=== PATIENT | male | born 1980 | race Caucasian/White ===

== ENCOUNTER 2016-09-19 17:29 | Emergency (ER) | payer OTHER ==
[2016-09-19 17:38] VITALS: BP 114/78; PULSE 85; RESP 20; TEMP 98; O2SAT 97
--- NOTE | 2016-09-19 17:46 | UCPHY ---
H & P Time Seen by Provider: 09/19/16 17:37 Patient Type: New HPI/ROS: CHIEF COMPLAINT: Ear pain HISTORY OF PRESENT ILLNESS: The patient is a 35 year old male presenting with right ear pain that started 3 days ago. His pain was excruciating at onset and lasted for about 5 hours, but then is able to fall asleep. Subsequently the weekend there was no pain. However overtime he still had a sense of some discomfort. No drainage. He states it feels like he dropped water in his ears. The patient notes some associated dizziness which is more lightheadedness rather than vertigo, that he states makes him feel off balance. Over the past few days that patient has noticed a ringing in both ears. He feels more fatigued than usual. Yesterday the patient developed a bump behind his left ear. He reports no pain to the left ear or difficulty hearing. He has not had episodes of tinnitus, progressive hearing loss, or vertigo in the past REVIEW OF SYSTEMS: Constitutional: No fever, no chills. Eyes: No discharge ENT: No sore throat. While most of the symptoms have been on the left, today he did note some mild right ear pain. Musculoskeletal: No back pain. Skin: No rashes. Neurological: No headache. Smoking Status: Never smoked Physical Exam: General Appearance: Alert, no distress. Afebrile. Normal phonation. No respiratory distress. Eyes: Pupils equal and round no pallor or injection. No icterus ENT, Mouth: Mucous membranes moist. Pharynx without erythema or exudate. Ear: Overlying left mastoid 2cm 1 cm fullness to soft tissue. Mastoid per se is nontender. Slightly diminished hearing in the right ear vs left when rubbing fingers 10 cm from either ear. TMs are clear. Neck: No adenopathy. Supple. No JVD. Trachea in midline. Neurological: Ox3. No motor weakness. Sensation intact. Gait nl. Cranial nerves 1-12 are intact. Barnay-Test negative for subjective reproduction of the symptoms or nystagmus Skin: Warm and dry, no rashes. Constitutional: Initial Vital Signs Temperature (C) 36.6 C 09/19/16 17:34 Heart Rate 85 09/19/16 17:34 Respiratory Rate 20 09/19/16 17:34 Blood Pressure 114/78 09/19/16 17:34 O2 Sat (%) 97 09/19/16 17:34 O2 Delivery Mode Room Air Allergies/Adverse Reactions: No Known Allergies Allergy (Unverified 09/19/16 17:33) Home Medications: Medication Instructions Recorded NK [No Known Home Meds] 09/19/16 Medical Decision Making ED Course/Re-evaluation: His exam is benign at this time. The burning is negative. The area of soft tissue swelling behind the left ear is that of soft tissue swelling and not bony involvement. I do not see findings suggested either Meniere's disease, mastoiditis or labyrinthitis. Differential Diagnosis: Diagnostic considerations include, but are not limited to, the following: URI, sinusitis, pharyngitis, otitis media, pneumonia, allergy, influenza. Departure - Departure Disposition: Home, Routine, Self-Care Clinical Impression: swelling behind left ear Tinnitus Qualifiers: Laterality: left Qualified Code(s): H93.12 - Tinnitus, left ear Condition: Good Instructions: Tinnitus (ED) Additional Instructions: Examine the area behind the left ear only twice daily. This is important so that she do not irritated. Return or seek additional care if it becomes reddened or progressively swollen. It is important to have a follow-up exam with Ear Nose and Throat in 10 days time if things do not settle down on their own. Referrals: Rajinder Reese MD [Primary Care Provider] - As per Instructions Sebastien Cuba MD [Medical Doctor] - As per Instructions (Ear, Nose, Throat specialist. ) - PQRS PQRS Measurement: NA Report Scribed for: Dre Ulloa Report Scribed by: Allie Cotter Date of Report: 09/19/16 Time of Report: 17:46
== END 2016-09-19 18:06 | disposition home or self-care (01) ==
LOC: CED 17:29
DX: R22.0 Localized swelling, mass and lump, head (principal); H93.12 Tinnitus, left ear
CPT/HCPCS: G0463-PO